=== PATIENT | male | born 1955 | race African-American/Black ===

== ENCOUNTER 2019-03-10 11:09 | Day surgery (SDC) | payer OTHER ==
[~2019-03-10] VITALS: Ht 177.8 cm; Wt 159.0 kg
[~2019-03-10 11:09] MED LIST: AMLO-511 PO; ASPI81 PO; ATOR20TA86 PO; BENA10TA12 PO; CLON0.1T PO; GLIP5 PO; HYDR25TA PO; INSNOV SQ; METF-960 PO; METO25 PO; PARO20TA24 PO
[2019-03-10] MEDS ORDERED: PROPOFOL 1% 20 ML VIAL IVP ONE (11:10)
[2019-03-10] MEDS ORDERED: SODIUM CHLORIDE 0.9% 1,000 ML IV ONE ×2 (11:30)
[2019-03-10 11:54] LABS: GLUCOMETER DEV NAME(LOC) SDS.; GLUCOSE,POINT OF CARE 140 MG/DL (70-110)
== END 2019-03-10 14:45 | disposition home or self-care (01) ==
LOC: SURGERY 11:09
PROVIDERS: ATTEND Internal Medicine Gastroenterology
DX: Z12.11 Encounter for screening for malignant neoplasm of colon (principal); D12.5 Benign neoplasm of sigmoid colon; F90.9 Attention-deficit hyperactivity disorder, unspecified type; I10 Essential (primary) hypertension; E66.09 Other obesity due to excess calories; F32.9 Major depressive disorder, single episode, unspecified; E11.9 Type 2 diabetes mellitus without complications; E78.00 Pure hypercholesterolemia, unspecified; Z80.0 Family history of malignant neoplasm of digestive organs; Z86.010 Personal history of colon polyps; Z68.43 Body mass index [BMI] 50.0-59.9, adult
CPT/HCPCS: 45385; 82962; J2704; J7030

== ENCOUNTER 2019-04-01 07:08 | Day surgery (SDC) | payer OTHER ==
[~2019-04-01] VITALS: Ht 177.8 cm; Wt 159.0 kg
[~2019-04-01 07:08] MED LIST changes: +SODIUM CHLORIDE 0.9% 1,000 ML IV ONE
[2019-04-01] MEDS: SODIUM CHLORIDE 0.9% 1,000 ML IV ONE (08:43)
[2019-04-01 08:55] LABS: GLUCOMETER DEV NAME(LOC) SDS.; GLUCOSE,POINT OF CARE 106 MG/DL (70-110)
[2019-04-01] MEDS ORDERED: LIDOCAINE/PF 2% 5 ML VIAL INJ ONE (12:00)
[2019-04-01] MEDS ORDERED: PROPOFOL 1% 20 ML VIAL IVP ONE (12:00)
== END 2019-04-01 11:15 | disposition home or self-care (01) ==
LOC: SURGERY 07:08
PROVIDERS: ATTEND Internal Medicine Gastroenterology
DX: Z12.11 Encounter for screening for malignant neoplasm of colon (principal); D12.0 Benign neoplasm of cecum; F90.9 Attention-deficit hyperactivity disorder, unspecified type; I10 Essential (primary) hypertension; E66.09 Other obesity due to excess calories; E78.00 Pure hypercholesterolemia, unspecified; E11.9 Type 2 diabetes mellitus without complications; Z79.84 Long term (current) use of oral hypoglycemic drugs; Z79.899 Other long term (current) drug therapy; Z79.4 Long term (current) use of insulin; Z80.0 Family history of malignant neoplasm of digestive organs; Z68.43 Body mass index [BMI] 50.0-59.9, adult
CPT/HCPCS: 45385; 82962; 88305; C1769; J2704; J3490; J7030